=== PATIENT | male | born 1995 | race African-American/Black ===

== ENCOUNTER 2019-09-21 16:13 | Emergency (ER) | payer SELFPAY ==
[~2019-09-21] VITALS: Ht 177.8 cm; Wt 68.0 kg
[2019-09-21 16:20] VITALS: BP_SYST 153
[2019-09-21 16:50] VITALS: BP_SYST 150
== END 2019-09-21 16:23 ==
LOC: SED 16:13
DX: H10.213 Acute toxic conjunctivitis, bilateral (principal)
CPT/HCPCS: 99283